=== PATIENT | female | born 1960 | race Caucasian/White ===

== ENCOUNTER 2020-06-14 03:29 | Outpatient (CLI) | payer SELFPAY ==
[2020-06-16 16:48] LABS: COVID-19 RT-PCR Result NEGATIVE (Negative)
== END 2020-06-14 03:49 ==
PROVIDERS: PCP Nurse Practitioner Family; Visit Provider Student in an Organized Health Care Education/Training Program
DX: Z11.59 Encounter for screening for other viral diseases (principal); Z01.818 Encounter for other preprocedural examination
CPT/HCPCS: U0003

== ENCOUNTER 2020-06-14 04:46 | Outpatient (CLI) | payer SELFPAY ==
[2020-06-14 10:32] LABS: HGB 13.1 g/dL (11.2-15.7); MCH 30.9 pg (27.0-33.0); MCHC 34.5 % (32.0-36.0); MCV 89.6 fL (80-95); MPV 8.8 fL (8.0-11.0); Platelet Count 334 10^3/uL (130-400); RBC 4.24 10^6/uL (3.93-5.22); RDW 12.3 % (11.7-14.6); RDW-SD 39.8 fL; WBC 8.28 10^3/uL (4.4-10.8)
[2020-06-14 11:47] LABS: Anion Gap 6.6 mmol/L (3-11); BUN 22 mg/dL (7-18); CO2 31.4 mmol/L (21.0-32.0); Calcium 9.4 mg/dL (8.5-10.1); Chloride 105 mmol/L (98-107); Glucose 102 mg/dL (74-106); Potassium 3.9 mmol/L (3.5-5.1); Sodium 143 mmol/L (136-145)
== END 2020-06-14 05:06 ==
PROVIDERS: PCP Nurse Practitioner Family; Visit Provider Student in an Organized Health Care Education/Training Program
DX: M25.562 Pain in left knee (principal); M17.12 Unilateral primary osteoarthritis, left knee; Z01.818 Encounter for other preprocedural examination; Z01.812 Encounter for preprocedural laboratory examination
CPT/HCPCS: 36415; 80048; 85027

== ENCOUNTER 2020-06-14 09:14 | Outpatient (CLI) | payer SELFPAY ==
--- NOTE | 2020-06-14 09:00 | DI.RAD_ITS ---
EXAM: XR STANDING ALIGNMENT CLINICAL HISTORY: PRE OP L TKA. TECHNIQUE: 2D digital imaging was performed. Standing AP views were performed including the pelvis through the ankles. COMPARISON: CR,DX XR KNEE 3V BILAT-M2 from 08/16/2019 FINDINGS: BONES: No acute fracture is present. No bony destructive lesion is seen. No significant leg length di screpancy at the level of the femoral heads. JOINTS: No dislocation present. The hip joint spaces are well maintained. There is mild acetabular s purring bilaterally. Prior right ACL repair. Severe narrowing of both medial femoral tibial joints causing bilateral varus angulation. Ankle joint spaces well maintained. SOFT TISSUE: Normal. IMPRESSION: Severe degenerative Changes of both medial femoral tibial joints. DATA REPOSITORY: RADIATION DOSE DELIVERED:
--- NOTE | 2020-06-14 09:00 | DI.RAD_ITS ---
EXAM: XR KNEE LT 1V CLINICAL HISTORY: PRE OP L TKA. TECHNIQUE: 2D digital imaging was performed. COMPARISON: CR,DX XR KNEE 3V BILAT-M2 from 08/16/2019 CR,DX XR KNEE 3V BILAT-M2 from 08/16/2019 CR XR STANDING ALIGNMENT from 06/14/2020 FINDINGS: BONES: No acute fracture is present. No bony destructive lesion is seen. JOINTS: The knee is normally aligned. A small joint effusion is seen. There is prominent spurring at the patellofemoral joint. Severe narrowing of the medial femoral tibial joint. SOFT TISSUE: Normal. IMPRESSION: Moderate to severe degenerative changes. DATA REPOSITORY: RADIATION DOSE DELIVERED:
== END 2020-06-14 09:34 ==
PROVIDERS: PCP Nurse Practitioner Family; Referring Provider Nurse Practitioner Family; Visit Provider Physician Assistant
DX: M17.12 Unilateral primary osteoarthritis, left knee (principal)
CPT/HCPCS: 73560; 77073

== ENCOUNTER 2020-06-19 07:32 | Observation (INO) | payer SELFPAY ==
[2020-06-19] VITALS (12 sets, daily range): BP systolic 88–156; BP diastolic 48–79; PULSE 58–82; RESP 10–20; TEMP 35.9–36.6; O2SAT 95–99
[2020-06-19] MEDS: Bupivacaine 0.25% Pres-Free 30 ML VIAL ×2 (08:04→12:13)
[2020-06-19] MEDS: Acetaminophen 500 MG TAB 1000 MG PO ×3 (08:33→19:39)
[2020-06-19] MEDS: Gabapentin 300 MG CAP PO ×2 (08:34→21:12)
[2020-06-19] MEDS: Lactated Ringers 1,000 ML 80 ML IV ×2 (08:40→15:29)
[2020-06-19] MEDS: Celecoxib 200 MG CAP 400 MG PO (09:33)
[2020-06-19] MEDS: CLINDAMYCIN 900 MG/50 ML BAG 50 MG IVPB (11:41)
[2020-06-19] MEDS: Normal Saline 20 ML VIAL (12:13)
[2020-06-19] MEDS: Ketorolac 30 MG/ML VIAL (12:13)
--- NOTE | 2020-06-19 14:44 | W.PM.OP ---
Date of service: 06/19/20 Time of Service: 12:44 Operative Note Operative Note DATE OF PROCEDURE: 06/19/20 PRE-OP DIAGNOSIS: Left Knee Osteoarthritis POST-OP DIAGNOSIS: same PROCEDURE: Left Total Knee Replacement SURGEON: Solis Reyna PRESS TENDER: Concha Cruz ANESTHESIA: regional and spinal ESTIMATED BLOOD LOSS: 250 PATHOLOGY: none sent TOURNIQUET TIME: 0 COMPLICATIONS: None Patient was transported to: PACU Patient's condition: stable Implants: 1. Depuy Attune Cementless Cruciate Retaining Femoral Component, Size 6 Narrow 2. Depuy Attune Cementless Rotating Platform Tibial Component, Size 4 3. Depuy Attune 6x6mm CR/RP Poly 4. Depuy Attune Patellar Component, Size 32mm Indications: I have seen Jessica in clinic for symptoms of knee arthritis, confirmed with radiographic findings. Jessica has exhausted nonoperative methods and was having significant limitations in daily function and desired better function and less pain. I discussed the technical details of a knee replacement. I explained the risks of the procedure to include, but not limited to, bleeding, infection, pain, stiffness, fracture, damage to nerves and vessels, damage to muscles and tendons, loosening, need for repeat procedure, blood clot and cardiopulmonary demise. Despite these risks, she elected to proceed. Findings: There was significant signs of arthritis throughout the knee, most notably of the medial tibia and femur. Procedure Description: Jessica was greeted in the preoperative holding area where the correct side was identified and marked. The consent was reviewed with the patient and signed. The history and physical was updated. All questions were answered. Preoperative medications were administered: Acetaminophen 1000mg, Celebrex 400mg, and Gabapentin 300mg. An adductor canal block was then administered by the anesthesia team in the PACU. Jessica was taken back to the operating room. A spinal anesthestic was then administered. The patient was placed into the supine position on the operating room table. A nonsterile tourniquet was placed high onto the leg but only used for cementing. Posts were placed for positioning during the procedure. All bony prominences were well padded. Prophylactic antibiotics in the form of Cefazolin were administered. 1g of Tranxemic Acid was given intravenously within 30 minutes of incision. The left leg was then prepped with Chloraprep and draped in a standard fashion with impervious stockinette. A second prep with Chloraprep was performed prior to application of Iodine impregnated skin protection. A timeout to confirm correct identity, side and site, procedure, allergies, anesthesia, and medical concerns was performed. With the knee in some flexion, a midline incision was made overlying the knee. Full thickness skin flaps were raised once the extensor mechanism was encountered. These were raised medially and laterally. Any bleeding was controlled with electrocautery. Once the extensor mechanism was fully exposed, a medial parapatellar arthrotomy was performed in a flexed position. All bleeding from the arthrotomy and the geniculate arteries was coagulated. A medial subperiosteal peel was performed with electrocautery to the midcoronal plane. Due to the significant varus deformity the entire medial tibial plateau was exposed. The fat pad was removed while keeping the patellar tendon protected. The anterior distal femur synovium was removed for later visualization. The ACL and PCL were resected and the anterior horn of the lateral meniscus was transected. The knee was then flexed with the patella everted. Large osteophytes from the tibia and femur were removed. Using a step drill, and based on preoperative templating, the femoral canal was entered. This was done with a step drill without any difficulty. The intramedullary distal femoral cut guide was inserted, set to a 5 degree valgus cut and 9mm cut thickness. The distal femoral cut guide was then held in position and pinned. With the soft tissues protected, the distal cut was performed. This was passed over a few times to ensure a planar cut. I then turned attention to the tibia. The extramedullary guide was placed onto the leg. The distal aspect was slid medial to adjust for position of center of ankle and stay in line with shaft of the tibia. Approximately 3-5 degrees of posterior slope was kept in the proximal cutting guide. The center of the guide was aligned with the PCL. The stylus was used to assess cut thickness. The medial side, most involved side, was set for a 2mm cut. This was then held in position and pinned into place with 2 additional pins and a cross pin for stability. The medial and lateral collateral ligaments were protected and the cut was performed. With this completed, it was assessed and noted to be of appropriate dimensions. The guide was removed. A spacer block was inserted and the knee was brought into extension. The 6mm spacer block provided full extension, without hyperextension and with stability of both the medial and lateral collateral ligaments was assessed. The pins from the femur and the tibia were then removed. The distal femur was then sized. The anterior stylus was placed onto the lateral ridge of the anterior femur. This indicated a size 6 narrow femur. The external rotation of the guide was adjusted to 3 degrees to match the epicondylar axis, perpendicular to [place]?s line. The 4-in-1 cutting guide was the placed. The posterior medial femur cut was evaluated and appeared of good thickness. The spacer block was inserted underneath the cutting guide and stability was confirmed in 90 degrees of flexion. An vero wing was used to confirm appropriate position of the anterior cut to avoid notching. This cutting guide was ensured to be flush on the cut surface and then pinned into place with headed pins. While protecting the soft tissues, quad tendon, and collateral ligaments, the anterior and posterior cuts were performed with a saw. The central two pins were removed and the posterior and anterior chamfers were cut next. The notch-cutting guide was placed. This was pinned to lateralize the femoral component as much as possible while keeping it flush on the cut surface. This was then pinned into position. A reciprocating saw was used to make the notch cut. A rasp smoothed the cut surfaces. The medial and lateral menisci were removed. A trial femoral component was then inserted, impacted down to the cut surfaces, and the lug holes were drilled. A provisional trial tibial component was placed and the knee was brought through range of motion. There was noted to be excellent extension and flexion. There was no significant instability. The patella was tracking without thumbs. A size 6mm polyethylene component provided the best range of motion and stability with less than 2mm gapping with medial and lateral stress and full extension without significant hyperextension. The tibial cut surface was fully exposed. The tibia was then sized as a 4. The tibia had been previously marked during trialing to correspond to the center of the tibial component to help with rotation. The trial was aligned to this concha, approximately rotated to the medial 1/3rd of the tibial tubercle. The trial was pinned into place. The tibia was prepared with a reamer and a keel punch and lug holes. The knee was then brought into extension and the patella was measured as 23mm. Using the patellar clamp and cut guide, this was resected to a flat surface with at least 13mm of thickness remaining. The size 32 patella fit the best. This was oriented and then clamped into position. The lugs were drilled. The trial components were removed. The final components were opened on the back table. The periosteal and capsular tissues, especially posteriorly, around the knee were then systematically injected with a periarticular cocktail consisting of 50cc 0.25% Marcaine, 30mg Ketorolac, 20cc of Exparal and 50cc of injectable saline. The knee was thoroughly irrigated with a pulse lavage and dried. Irrisept was also used to irrigate the tissues. On the back table, with the implants opened, the cement was mixed. One batche of high viscosity cement were prepared with vacuum assistance. After the cement was ready a small amount was placed on the cut surface of the patella and the patellar button was clamped into position and held. During this process attention was turned to the gutters of the knee and for all interfaces for any excess cement. While the cement was hardening, the cementless knee components were placed. Starting with the tibial component, the tibia was subluxed anteriorly and the lug holes of the component were lined up. The tibia was then impacted with an impactor and mallet until the tibial component was in contact with the tibia. The final polyethylene component was inserted. Then, the femoral component was inserted. The lug holes were aligned and the component was impacted into position. The knee was irrigated with Irrisept chlorhexadine solution. This was allowed to sit in the knee for 3 minutes. After the cement had finally cured, approximately 15min, the clamp was removed from the patella and the knee was taken through range of motion. The patella was tracking with a no-thumbs technique. The capsule was then reapproximated with a No. 1 Vicryl at multiple locations. The capsule was finally closed with a No. 2 Stratafix, barbed suture. The tourniquet was then released and the arthrotomy appeared watertight without significant bleeding. The second dosing of 1g TXA was started. Deep tissues were then reapproximated with 0 Vicryl and 2-0 Vicryl. The skin was closed with a running 3-0 Monocryl in a subcuticular fashion. This was reinforced with skin glue. A Mepilex silver dressing was applied along with a [id number] PIA wrap. A CryoCuff was applied. NAME was transferred to the hospital bed without difficulty an suffering no apparent complication. Jessica has a good prognosis. Physical therapy will start today and without restrictions, weight-bearing as tolerated. Aspirin 81mg BID will be used for DVT prophylaxis.
[2020-06-19] MEDS: Gabapentin 100 MG CAP PO ×2 (14:49→19:39)
--- NOTE | 2020-06-19 15:13 | PT.INIE ---
Date of service: 06/19/20 Time of Service: 15:13 PT Notes Visit Reasons: L KNEE OA Physical Therapy Inpatient Initial Evaluation Date: 06/19/2020 Referring Doctor: KYA Rizvi PT Orders: PT CONSULT: Eval/treat Precautions: Fall. Standard. WBAT on left LE. Patient Profile/Admitting Diagnosis: Jessica is a 60-year-old female with degenerative joint disease of the left knee and is status post total knee arthroplasty on postoperative day 0. PMHX: Medical History Osteoarthritis of left knee Surgical History (Updated 06/14/20 @ 12:40 by KYA Rizvi) Status post arthroscopy of right knee Status post left rotator cuff repair Status post reconstruction of anterior cruciate ligament RIGHT Social History/Home Situation: Lives alone in a private home with three steps to enter and a rail on one side. Daughter, who is a physical therapist from [facility] has quarantined and will be with the patient during her first week of recovery. 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 Friend will help her out during the second week post-op. Equipment Owned/DME: [employer] Subjective: Reports some achiness in the back of her knee that felt better with ambulation activity. Indicates that she has had some tingling in her L leg and toes from her sciatica but today there is more tingling in said areas. She does understand that it may also be due to the anesthesia. Denies headache, dizziness, and chest pain throughout session. Objective: General Observation: Raymundo wraps on left LE. Cryo/Cuff on right knee. IV acces in R UE. Mental Status: Alert and oriented x4 Pain: 1/10 in the right knee ROM: Right Upper Extremity: Shoulder Flexion WFL. Shoulder abduction WFL. Elbow flexion WFL. Wrist flexion WFL. Opening and closing of hand WFL. Left Upper Extremity: Shoulder Flexion WFL. Shoulder abduction WFL. Elbow flexion WFL. Wrist flexion WFL. Opening and closing of hand WFL. Right Lower Extremity: Hip flexion WFL. Hip abduction WFL. Knee flexion WFL. Ankle dorsiflexion WFL. Ankle plantarflexion WFL. Left Lower Extremity: Hip flexion WFL. Hip abduction WFL. Knee flexion 10degrees to 90 degrees. Knee extension -10 degrees. Ankle dorsiflexion WFL. Ankle plantarflexion WFL. Strength: Right Upper Extremity: Shoulder flexors 5/5. Shoulder abductors 5/5. Elbow flexors 5/5. Elbow extensors 5/5. Gas Regulator Repairer Helper strong. Left Upper Extremity: Shoulder flexors 5/5. Shoulder abductors 5/5. Elbow flexors 5/5. Elbow extensors 5/5. Gas Regulator Repairer Helper strong. Right Lower Extremity: Hip flexors 5/5. Hip abductors 5/5. Knee flexors 3-/5. Knee extensors 3-/5. Ankle dorsiflexors 5/5. Ankle plantarflexors 5/5. Left Lower Extremity:Hip flexors 5/5. Hip abductors 5/5. Knee flexors 5/5. Knee extensors 5/5. Ankle dorsiflexors 5/5. Ankle plantarflexors 5/5. Sensation: Intact as to pain and pressure on bilateral lower extremities. Reports some increased tingling in B legs and toes. Bed Mobility/Transfers: Rolling supervison Supine to sit supervison with HOB at 30 degrees Sit to stand SBA Stand to sit SBA Bed to chair SBA Chair to bed SBA Gait: Guided patient through level surface ambulation of 100 feet using front wheeled walker with WBAT on the left LE requiring only standby assist and minimal verbal cueing for correct gait pattern and walker mechanics. Step through gait pattern. Reported less stiffness on the left knee with activity. THERA EX: Instructed patient in correct performance of muscle static exercises for bilateral gluteals and quadriceps x10 along with ankle DF/PF x10 every hour with good response. Balance: Static Sitting: Normal Dynamic Sitting: Normal Static Standing: Fair Dynamic Standing: Fair Special Tests: Mobility Limitations Standardized Measure [facility] AM-PAC 6 clicks Basic Mobility Inpatient Short Form: Raw Score: 23 CMS Score: 11% deficit Informed Consent/Education: Patient instructed in purpose of PT consult and plan of care. Assessment: Jessica demonstrates functional mobility decline requiring the use of front wheeled walker for all mobility ADL performance. She will have adequate support at home. She will benefit from outpatient PT services to facilitate achievement of highest functional level and of full return to vocational activities. Patient presents with clinical signs and symptoms consistent with current/admitting diagnoses that have resulted to mobility limitations, gait instability, generalized weakness, and impairment of motor control as demonstrated by the following impairment level findings: 1. Decreased strength to left knee major muscle groups 2. Impaired standing balance 3. Impaired activity tolerance 4. Limitation of joint range of motion in left knee Impairments are contributing to the following functional limitations: 1. Inability to safely ambulate without assistive device 2. Increase completion time for mobility ADL performance 3. Increased fall risk 4. Inability to negotiate steps alone safely Patient is assessed as a 39787 moderate complexity based on the following: History: Asked to 1-year-old female with impairment level findings, functional limitations, and past medical history as indicated above Examination: Demonstrable impairment in strength, balance, and mobility level with underlying impairments and functional limitations as documented above Presentation:Evolving Decision Makin moderate complexity Goals: Goals X 2 sessions 1. Supine-Sit independent 2. Sit-Supine independent 3. Sit-Stand independent 4. Stand-Sit independent 5. Bed-Chair independent 6. Chair-Bed independent 7. Independent gait on level surface with use of front wheeled walker for at least 300 feet without report of pain nor dyspnea 8. Independent stair negotiation while holding onto bilateral rails for at least 5 steps without report of pain nor dyspnea 9. Independent with home exercise program 10. Good static and dynamic standing balance/tolerance Plan of Care/Treatment Plan: 1-2x/day, 7 days/week x 1 week. Plan of care has been reviewed with the APPOINTMENT SETTER providing the service under Physical Therapy direction. Initiate Physical Therapy intervention for strengthening, bed mobility, transfers, gait, stairs, balance training, use of assistive device. DISCHARGE RECOMMENDATIONS: Home when medically cleared by orthopedic surgeon. Outpatient PT services in 2 weeks to facilitate achievement of highest functional mobility level and facilitate return to vocational activities. TREATMENT CODE/TIME: 15079 x 30 minutes, 86091 x 12 minutes beginning at 15:13 PM. Thank you for the opportunity to participate in the care of this patient. Yasmine Webb PT, DPT, CLT [facility] [place], [place]
[2020-06-19] MEDS: CLINDAMYCIN 600 MG/50 ML BAG 100 MG IVPB ×2 (16:57→23:35)
[2020-06-19] MEDS: Celecoxib 200 MG CAP PO (19:39)
[2020-06-19] MEDS: Aspirin E.C. 81 MG TABEC PO (19:39)
[2020-06-20] MEDS: Lactated Ringers 1,000 ML 80 ML IV (03:44)
[2020-06-20 04:03] VITALS: BP 110/62; RESP 18; TEMP 36.4; O2SAT 94
--- NOTE | 2020-06-20 06:39 | DSE_ITS ---
Date of service: 06/20/20 Time of Service: 08:33 DS: Diagnosis Discharge Diagnosis (1) Osteoarthritis of left knee: Status: Acute Discharge Plan Disposition Patient Disposition: HOME Condition: Good Discharge Details Reason For Visit: L KNEE OA Admit Date/Time: 06/19/20 07:32 Admit Provider: Solis Reyna Attending Provider: Solis Reyna Primary Care Provider: Ruperto Helton Hospital Course Hospital Course: Patient was admitted to the medical/surgical floor following the procedure. The surgery was tolerated well without any notable medical, surgical, or anesthetic complications. Mobilization began postoperatively. She was voiding spontaneously. Vitals were stable. Physical therapy worked with the patient and was cleared for discharge home. No acute medical issues. Pain was controlled on oral regimen. Home Meds and New Rx's Prescriptions: New celecoxib [Celebrex] 200 mg capsule 200 mg PO BID Qty: 60 RF: 0 aspirin 81 mg tablet,delayed release (DR/EC) 81 mg PO BID Qty: 60 RF: 0 pantoprazole [Protonix] 40 mg tablet,delayed release (DR/EC) 40 mg PO DAILY Qty: 30 RF: 0 oxycodone 5 mg tablet 5 mg PO Q4H PRNQty: 18 RF: 0 docusate sodium [Colace] 100 mg capsule 100 mg PO BID PRNQty: 10 RF: 0 gabapentin 300 mg capsule 300 mg PO QHS Qty: 14 RF: 0 acetaminophen 500 mg tablet 1,000 mg PO Q8H PRN (Reason: pain) Qty: 90 RF: 3 Continued gabapentin 100 mg capsule 100 mg PO TID RF: 0 multivitamin Tablet RF: 0 coenzyme Q10 [CoQ-10] 100 mg Capsule PO RF: 0 vit A, C, E-ndL24-vluimo vit 6 5,000-60-30-7.5 jggo-vj-qw-mg Tablet PO RF: 0 No Action ibuprofen 400 mg tablet 800 mg PO Q6H RF: 0 Discharge Instructions Additional Instructions: Total Knee Discharge Instructions Activity: The most important activity is to walk. You should try to take short walks a few times a day. It is important that when resting you work on keeping the knee straight. Avoid putting a pillow behind the knee as this will encourage flexion. Work on range of motion exercises as provided by Physical Therapy. - Start outpatient physical therapy within 2 weeks. - You should wear the BERNIE hose on both legs for 2 weeks. Dressing: Keep the surgical dressing in place for at least one week. After the first week it may be removed and replace with light gauze and tape or nothing. It may get wet after 3 days but avoid soaking the dressing. If it gets wet, just lightly pat dry. Medications: - You should take Tylenol and anti-inflammatory Celebrex as your primary pain control medications. If the Celebrex is too expensive or not covered, please call the office for another alternative (Advil/Ibuprofen or Naproxen/Aleve), available [id number] - You have been prescribed a stronger pain medication Oxycodone for breakthrough pain, take as needed as prescribed. - You have also been prescribed a stomach acid reduction agent Pantoprozole to help reduce stomach acid and reflux. - You have been prescribed an additional dose of Gabapentin, 300mg. This is to be taken at bedtime to help with restlessness and nerve pain associated with surgery. - You will be taking Aspirin 81mg twice a day for DVT prevention unless instructed otherwise. - If you have constipation you should take Colace or Miralax (both over-the- counter). It takes most people 3-4 days to have a bowel movement. Follow-up: 2 weeks If you have any acute concerns or questions, please do not hesitate to contact the office at [phone]. You may contact Dr. Reyna with any questions after hours through the hospital at [phone] or on his cell phone at [phone]. Referrals: Solis Reyna MD [ [facility] STAFF PHYSICIAN] - Activity:: Activity as Tolerated Equipment/Supplies:: Walker Diet:: As Tolerated Discharge Orders Discharge Orders: Discharge Order (Routine); Ordered 06/20/20 Ordered By: Solis Reyna DS: Summary Status at Discharge Functional status at discharge: uses cane/walker Overall status at discharge: patient is progressing back to baseline Mental Status: mental status grossly normal Speech and Movement: speech and movement normal Mood: congruent mood Affect: normal affect Exam Psych Mental Status: mental status grossly normal Speech and Movement: speech and movement normal Mood: congruent mood Affect: normal affect DS: Data Vitals/I&O Vitals and I&O: Vital Signs Temperature 36.4 C L 06/20/20 04:03 Temperature Source Tympanic 06/20/20 04:03 Pulse 70 06/19/20 23:41 Pulse Rhythm Regular 06/19/20 23:39 Respiratory Rate 18 06/20/20 04:03 Respiratory Effort Non-Labored 06/19/20 23:39 Respiratory Depth Normal 06/19/20 23:39 Respiratory Pattern Normal 06/19/20 23:39 Blood Pressure 110/62 06/20/20 04:03 Pulse Oximetry 94 06/20/20 04:03 Respiratory End-tidal CO2 35 06/19/20 14:15 Oxygen Delivery Method Room Air 06/20/20 04:03 Oxygen Flow Rate 0 06/20/20 04:03 Pain Level 2 06/19/20 23:41 Intake & Output 06/19/20 06/19/20 06/20/20 11:59 23:59 11:59 Intake Total 110 / 1730 1620 / 1730 1030 / 1030 Output Total 2150 / 2150 800 / 800 Balance 110 / -420 -530 / -420 230 / 230 Weight 96.1 kg Intake: IV 110 / 1170 1060 / 1170 1030 / 1030 Oral 560 / 560 Output: Urine 1900 / 1900 800 / 800 Estimated Blood Loss 250 / 250 Other: Urine Color Yellow Yellow Urine Appearance Clear Clear Urine Odor None Emesis Description None Voiding Methods Toilet Toilet [facility] Medical History Osteoarthritis of left knee Surgical History History of removal of ovarian cyst Hx of cholecystectomy Status post arthroscopy of right knee Status post left rotator cuff repair Status post reconstruction of anterior cruciate ligament RIGHT Social History Smoking/Tobacco Use Status: Never Smoking risk assessment performed?: Yes Drug use: Never
[2020-06-20 07:30] VITALS: BP 121/68; PULSE 61; RESP 17; TEMP 36.6; O2SAT 97
[2020-06-20] MEDS: Celecoxib 200 MG CAP PO (07:36)
[2020-06-20] MEDS: Multivitamin w/Minerals TAB 1 TAB PO (07:36)
[2020-06-20] MEDS: oxyCODONE 5 MG TAB PO (07:36)
[2020-06-20] MEDS: Pantoprazole 40 MG TABCR PO (07:36)
[2020-06-20] MEDS: CLINDAMYCIN 600 MG/50 ML BAG 100 MG IVPB (07:37)
[2020-06-20] MEDS: Aspirin E.C. 81 MG TABEC PO (07:37)
[2020-06-20] MEDS: Gabapentin 100 MG CAP PO (07:37)
[2020-06-20] MEDS: Acetaminophen 500 MG TAB 1000 MG PO (07:37)
--- NOTE | 2020-06-20 10:45 | PT.INTREAT ---
Date of service: 06/20/20 Time of Service: 09:10 PT Notes Visit Reasons: L KNEE OA Inpatient Physical Therapy Treatment Note [facility] Date: 06/20/2020 PRECAUTIONS: Fall, WBAT L SUBJECTIVE: Jessica states that she is feeling much better after receiving pain medication. She is agreeable to participating in PT. she reports that she is discharging to home later today. OBJECTIVE: PAIN: No complaints of pain BED MOBILITY/TRANSFERS Supine-sit: I with HOB flat Sit-stand: I Stand-sit: I Bed?chair: S Chair?bed: S GAIT Assistive Device: FWW Weight bearing: WBAT L Assist: S Distance: 300' Deviation: Step through gait pattern, decreased stiffness and pain THEREX: Patient was instructed in a LE strengthening and stabilization program, performed in a supine position, as per flow sheet. STAIRS: Up/down 3x4 and 2x6 using U rail/U axillary crutch and a step to pattern with supervision ASSESSMENT: Patient tolerated session with reports of decreased stiffness and pain in L knee with gait training and ther ex. She was able to tolerate a progression in gait distance with FWW support and supervision, as well as the addition of stair training. PLAN: Patient to discharge home later today. TREATMENT CODE/TIME: 30 minutes; 52401, [id number]
--- NOTE | 2020-06-24 09:09 | PT.INDS ---
Date of service: 06/24/20 Time of Service: 09:10 PT Notes Visit Reasons: L KNEE OA Physical Therapy Inpatient Discharge Summary Date: 06/24/2020 Date of service: 06/19/2020 and 06/20/2020 This is a clinical summary of care provided on the duration of dates listed above. No charge was made in the completion of this documentation. Referring Doctor: KYA Rizvi PT Orders: PT CONSULT: Eval/treat Precautions: Fall. Standard. WBAT on left LE. Patient Profile/Admitting Diagnosis: Jessica is a 60-year-old female with degenerative joint disease of the left knee and is status post total knee arthroplasty on postoperative day 0. PMHX: Medical History Osteoarthritis of left knee Surgical History (Updated 06/14/20 @ 12:40 by KYA Rizvi) Status post arthroscopy of right knee Status post left rotator cuff repair Status post reconstruction of anterior cruciate ligament RIGHT Social History/Home Situation: Lives alone in a private home with three steps to enter and a rail on one side. Daughter, who is a physical therapist from [facility] [employer] has quarantined and will be with the patient during her first week of recovery. 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 Friend will help her out during the second week post-op. Equipment Owned/DME: [employer], [employer] Subjective: NT. See most recent ART PSYCHOTHERAPIST notes. Objective: General Observation: NT. See most recent ART PSYCHOTHERAPIST notes. Mental Status: NT. See most recent ART PSYCHOTHERAPIST notes. Pain: NT. See most recent ART PSYCHOTHERAPIST notes. ROM: Right Upper Extremity: Shoulder Flexion WFL. Shoulder abduction WFL. Elbow flexion WFL. Wrist flexion WFL. Opening and closing of hand WFL. Left Upper Extremity: Shoulder Flexion WFL. Shoulder abduction WFL. Elbow flexion WFL. Wrist flexion WFL. Opening and closing of hand WFL. Right Lower Extremity: Hip flexion WFL. Hip abduction WFL. Knee flexion WFL. Ankle dorsiflexion WFL. Ankle plantarflexion WFL. Left Lower Extremity: Hip flexion WFL. Hip abduction WFL. Knee flexion 10degrees to 90 degrees. Knee extension -10 degrees. Ankle dorsiflexion WFL. Ankle plantarflexion WFL. Strength: Right Upper Extremity: Shoulder flexors 5/5. Shoulder abductors 5/5. Elbow flexors 5/5. Elbow extensors 5/5. Casework Specialist strong. Left Upper Extremity: Shoulder flexors 5/5. Shoulder abductors 5/5. Elbow flexors 5/5. Elbow extensors 5/5. Casework Specialist strong. Right Lower Extremity: Hip flexors 5/5. Hip abductors 5/5. Knee flexors 3-/5. Knee extensors 3-/5. Ankle dorsiflexors 5/5. Ankle plantarflexors 5/5. Left Lower Extremity:Hip flexors 5/5. Hip abductors 5/5. Knee flexors 5/5. Knee extensors 5/5. Ankle dorsiflexors 5/5. Ankle plantarflexors 5/5. Sensation: Intact as to pain and pressure on bilateral lower extremities. Reports some increased tingling in B legs and toes. Bed Mobility/Transfers: Rolling independent Supine to sit independent Sit to stand independent Stand to sit independent Bed to chair supervision Chair to bed supervision Gait: Guided patient through level surface ambulation of up to 300 feet using front wheeled walker with WBAT on the left LE requiring only supervision assist and minimal verbal cueing for correct gait pattern and walker mechanics. Step through gait pattern. Reported less stiffness on the left knee with activity. Balance: Static Sitting: Normal Dynamic Sitting: Normal Static Standing: Fair Dynamic Standing: Fair Assessment: Jessica continues to demonstrate functional mobility decline requiring the use of front wheeled walker for all mobility ADL performance. She will have adequate support at home. She will benefit from outpatient PT services to facilitate achievement of highest functional level and of full return to vocational activities. Patient continues to present with clinical signs and symptoms consistent with current/admitting diagnoses that have resulted to mobility limitations, gait instability, generalized weakness, and impairment of motor control as demonstrated by the following impairment level findings: 1. Decreased strength to left knee major muscle groups 2. Impaired standing balance 3. Impaired activity tolerance 4. Limitation of joint range of motion in left knee Impairments are continuing to contribute to the following functional limitations: 1. Inability to safely ambulate without assistive device 2. Increase completion time for mobility ADL performance 3. Increased fall risk 4. Inability to negotiate steps alone safely Goals: Goals X 2 sessions 1. Supine-Sit independent MET 2. Sit-Supine independent MET 3. Sit-Stand independent MET 4. Stand-Sit independent MET 5. Bed-Chair independent NOT MET 6. Chair-Bed independent NOT MET 7. Independent gait on level surface with use of front wheeled walker for at least 300 feet without report of pain nor dyspnea NOT MET 8. Independent stair negotiation while holding onto bilateral rails for at least 5 steps without report of pain nor dyspnea NOT MET 9. Independent with home exercise program NOT MET 10. Good static and dynamic standing balance/tolerance NOT MET DISCHARGE RECOMMENDATIONS: Home when medically cleared by orthopedic surgeon. Outpatient PT services in 2 weeks to facilitate achievement of highest functional mobility level and facilitate return to vocational activities. TREATMENT CODE/TIME: NC. Thank you for the opportunity to participate in the care of this patient. Yasmine Webb PT, DPT, CLT [facility] [place], [place]
== END 2020-06-20 11:02 | disposition home or self-care (01) ==
LOC: PDS 13:03 → MS 14:37
PROVIDERS: Admitting Provider Student in an Organized Health Care Education/Training Program; PCP Nurse Practitioner Family; Visit Provider Student in an Organized Health Care Education/Training Program
PROC: 0SRD0J9 Replacement of Left Knee Joint with Synthetic Substitute, Cemented, Open Approach (ICD-10-PCS; CPT 27447; principal; 2020-06-19 11:45)
DX: M17.12 Unilateral primary osteoarthritis, left knee (principal); Z96.652 Presence of left artificial knee joint; G89.18 Other acute postprocedural pain; Z88.2 Allergy status to sulfonamides
CPT/HCPCS: 27447; C1776; 76942; 97110; 97162; 97530; NC; G0378; J1885; J2250; J2405

== ENCOUNTER 2020-07-04 10:21 | Outpatient (CLI) | payer SELFPAY ==
--- NOTE | 2020-07-04 08:00 | DI.RAD_ITS ---
EXAM: XR KNEE LT 1V CLINICAL HISTORY: post operative. TECHNIQUE: 2D digital imaging was performed. COMPARISON: CR XR KNEE LT 1V from 06/14/2020 FINDINGS: This lateral view there appears to be normal position alignment of the components of the prosthesis w ith no fracture or loosening evident. No radiographic evidence of osteomyelitis. IMPRESSION: DATA REPOSITORY: RADIATION DOSE DELIVERED:
--- NOTE | 2020-07-04 08:00 | DI.RAD_ITS ---
EXAM: XR STANDING ALIGNMENT CLINICAL HISTORY: post op. TECHNIQUE: 2D digital imaging was performed. COMPARISON: CR XR STANDING ALIGNMENT from 06/14/2020 FINDINGS: There has been interval placement a left knee prosthesis. Satisfactory vision alignment. No fractur e or loosening evident. There is evidence of previous ACL surgery in the opposite-right knee and adv anced narrowing of the medial compartment of the right knee is noted. Hips appear unremarkable. No osteochondral defects in talar domes. IMPRESSION: DATA REPOSITORY: RADIATION DOSE DELIVERED:
== END 2020-07-04 10:41 ==
PROVIDERS: PCP Nurse Practitioner Family; Referring Provider Nurse Practitioner Family; Visit Provider Physician Assistant Surgical
DX: Z96.652 Presence of left artificial knee joint (principal)
CPT/HCPCS: 73560; 77073

== ENCOUNTER 2021-07-28 15:47 | Outpatient (CLI) | payer SELFPAY ==
--- NOTE | 2021-07-28 15:30 | DI.RAD_ITS ---
Exam(s) XR KNEE LT 2V AP,LAT EXAM: XR KNEE LT 2V AP,LAT CLINICAL HISTORY: f/u L TKA. TECHNIQUE: 2D digital imaging was performed. COMPARISON: CR XR KNEE LT 1V from 07/04/2020 FINDINGS: Stable position alignment the components of the prosthesis. No fracture or loosening evident. IMPRESSION: DATA REPOSITORY: RADIATION DOSE DELIVERED:
--- NOTE | 2021-07-28 15:30 | DI.RAD_ITS ---
Exam(s) XR KNEE RT 3V AP,LAT,ELISHA EXAM: XR KNEE RT 3V AP,LAT,ELISHA CLINICAL HISTORY: eval continued R knee pain. TECHNIQUE: 2D digital imaging was performed. COMPARISON: CR XR KNEE LT 1V from 06/14/2020 CR XR KNEE LT 1V from 07/04/2020 CR XR KNEE LT 2V AP,LAT from 07/28/2021 FINDINGS: There has been prior ACL repair. No fracture. No prominent joint effusion but there is advanced tri compartmental osteoarthritic degenerative change evident. [id number] in the medial and patellofemo ral compartments. IMPRESSION: DATA REPOSITORY: RADIATION DOSE DELIVERED:
== END 2021-07-28 15:48 | disposition home or self-care (01) ==
LOC: DIORS 15:47
PROVIDERS: PCP Nurse Practitioner Family; Referring Provider Nurse Practitioner Family; Visit Provider Student in an Organized Health Care Education/Training Program
DX: M25.561 Pain in right knee (principal); M17.11 Unilateral primary osteoarthritis, right knee; Z96.652 Presence of left artificial knee joint; Z98.890 Other specified postprocedural states
CPT/HCPCS: 73562; 73560

== ENCOUNTER 2022-07-13 09:30 | Outpatient (CLI) | payer SELFPAY ==
--- NOTE | 2022-07-13 09:15 | DI.RAD_ITS ---
Exam(s) XR KNEE LT 3V AP,LAT,ELISHA EXAM: XR KNEE LT 3V AP,LAT,ELISHA CLINICAL HISTORY: s/p L TKA. TECHNIQUE: 2D digital imaging was performed. Three views. COMPARISON: CR XR KNEE LT 1V from 07/04/2020 CR XR KNEE RT 3V AP,LAT,ELISHA from 07/28/2021 CR XR KNEE LT 2V AP,LAT from 07/28/2021 FINDINGS: BONES: Total knee prosthesis. No abnormal surrounding bony lucencies. No acute fracture is present. No bony destructive lesion is seen. JOINTS: Mild lateral patellar tilt and mild lateral patellar deviation.. No joint effusion is seen. SOFT TISSUE: Normal. IMPRESSION: Lateral patellar tilt and mild lateral patellar deviation. DATA REPOSITORY: RADIATION DOSE DELIVERED:
== END 2022-07-13 09:31 | disposition home or self-care (01) ==
LOC: DIORS 07-14 08:38
PROVIDERS: PCP Nurse Practitioner Family; Visit Provider Student in an Organized Health Care Education/Training Program
DX: Z96.652 Presence of left artificial knee joint (principal); M22.8X2 Other disorders of patella, left knee
CPT/HCPCS: 73562

== ENCOUNTER 2023-03-22 04:28 | Outpatient (CLI) | payer SELFPAY ==
[2023-03-22 10:56] LABS: HCT 42.4 % (36.0-46.0); HGB 14.6 g/dL (11.2-15.7); MCH 30.4 pg (27.0-33.0); MCHC 34.4 % (32.0-36.0); MCV 88 fL (80-95); MPV 8.4 fL (8.0-11.0); Platelet Count 296 10^3/uL (130-400); RDW 12.7 % (11.7-14.6); RDW-SD 41.1 fL; WBC 5.21 10^3/uL (4.4-10.8)
[2023-03-22 11:49] LABS: Anion Gap 7.8 mmol/L (3-11); BUN 18 mg/dL (7-18); CO2 30.2 mmol/L (21.0-32.0); CREATININE 0.7 mg/dL (0.55-1.02); Calcium 10.1 mg/dL (8.5-10.1); Chloride 103 mmol/L (98-107); Estimated GFR 97.12 (mL/min/1.73m2); Glucose 91 mg/dL (74-106); Potassium 4.1 mmol/L (3.5-5.1); Sodium 141 mmol/L (136-145)
== END 2023-03-22 04:29 | disposition home or self-care (01) ==
LOC: LBO 04:32
PROVIDERS: PCP Nurse Practitioner Family; Visit Provider Student in an Organized Health Care Education/Training Program
DX: M25.561 Pain in right knee (principal); M17.11 Unilateral primary osteoarthritis, right knee; Z01.818 Encounter for other preprocedural examination; Z01.812 Encounter for preprocedural laboratory examination
CPT/HCPCS: 36415; 80048; 85027

== ENCOUNTER 2023-03-22 09:26 | Outpatient (CLI) | payer SELFPAY ==
--- NOTE | 2023-03-22 08:15 | DI.RAD_ITS ---
Exam(s) XR KNEE RT 1V XR STANDING ALIGNMENT EXAM: XR STANDING ALIGNMENT and XR knee RT 1 V CLINICAL HISTORY: right knee DJD. TECHNIQUE: 2D digital imaging was performed. Eleven images were obtained. COMPARISON: CR XR STANDING ALIGNMENT from 07/04/2020 FINDINGS: BONES: The hips are well maintained. There is a stable left total knee replacement. There are marke d degenerative changes seen in the right knee characterized by joint space narrowing and osteophytes. The findings are most marked in the patellofemoral and medial femoral tibial joint. There is no neetu int effusion. Findings suggestive of a prior ACL repair are noted. No joint effusion is seen. The ankles are well maintained.There is no significant leg length discrepancy. SOFT TISSUE: Normal. IMPRESSION: 1. Marked degenerative changes of the right knee. 2. Left total knee replacement. DATA REPOSITORY: RADIATION DOSE DELIVERED:
== END 2023-03-22 09:27 | disposition home or self-care (01) ==
LOC: DIORS 09:26
PROVIDERS: PCP Nurse Practitioner Family; Visit Provider Physician Assistant
DX: M17.11 Unilateral primary osteoarthritis, right knee (principal); Z96.651 Presence of right artificial knee joint
CPT/HCPCS: 73560; 77073

== ENCOUNTER 2023-03-30 06:04 | Day surgery (SDC) | payer SELFPAY ==
[2023-03-30] VITALS (11 sets, daily range): BP systolic 103–154; BP diastolic 48–82; PULSE 58–71; RESP 16–20; TEMP 36.2–36.6; O2SAT 93–100; BMI 32.9
--- NOTE | 2023-03-30 06:22 | W.ANESPRE ---
General Info Date of Service Date Performed: 03/30/23 Height: 5 ft 4 in Weight: 87.09 kg Body Mass Index (BMI): 32.9 Surgical Procedure: Operation Date: 03/30/23 07:40 Proposed Procedure Side Surgeon p Knee Total Arthroplasty w/OrthAlign, Cementless CR, ? Screw Removal Right Solis Reyna MD Meds Allergies and Home Medications Allergies Allergy/AdvReac Type Severity Reaction Status Date / Time cephalexin [From Keflex] Allergy Intermediate WHOLE BODY Verified 03/30/23 06:23 RASH Sulfa (Sulfonamide Allergy Mild RASH Verified 03/30/23 06:23 Antibiotics) Home Medication Medication Instructions Recorded coenzyme Q10 100 mg capsule 100 mg PO DAILY 06/19/20 (CoQ-10) multivitamin 1 tab PO DAILY 06/19/20 vitamin A,C,E-co [id number] vit#6 1 tab PO DAILY 06/19/20 5,000 unit-60 mg-30 mg-7.5 mg tablet gabapentin 100 mg capsule 100 mg PO TID 07/13/22 Current Visit Medications: Current Medications Generic Name Dose Route Start Last Admin Trade Name Freq PRN Reason Stop Dose Admin Acetaminophen 1,000 mg 03/30/23 06:00 Acetaminophen 500 Mg Tab PO 03/30/23 16:00 PREOP DENYS Gabapentin 300 mg 03/30/23 06:00 Gabapentin 300 Mg Cap PO 03/30/23 16:00 PREOP DENYS Tranexamic Acid 1,000 mg/ 60 mls @ 360 mls/hr 03/30/23 06:00 Sodium Chloride IVPB 03/30/23 16:00 PREOP DENYS Clindamycin Phosphate/Dextrose 900 mg in 50 mls @ 50 mls/hr 03/30/23 06:00 Cleocin In D5w IVPB 03/30/23 16:00 PREOP DENYS Ringer's Solution 1,000 mls @ 80 mls/hr 03/30/23 06:00 IV 04/28/23 23:59 INFUSION [facility] IV Miscellaneous Supplies 1 each 03/30/23 06:00 Iv Access IV 04/28/23 23:59 DIRECTED DENYS Sodium Chloride 0 ml 03/30/23 06:00 Normal Saline Flush 10 Ml Syr IV 04/28/23 23:59 PRN PRN Sodium Chloride 0 ml 03/30/23 06:00 Normal Saline 10 Ml Vial IJ 04/28/23 23:59 DIRECTED PRN Sterile Water 0 ml 03/30/23 06:00 Water,Injection,Sterile 10 Ml Vial IJ 04/28/23 23:59 DIRECTED PRN PFSH Active Problems Active Problems: Problem Status Onset Code Iliotibial band syndrome of left side M76.32 Patellar tendonitis of both knees M76.51, M76.52 Osteoarthritis of right knee M17.11 Surgical History Surgical History History of removal of ovarian cyst Hx of cholecystectomy Status post arthroscopy of right knee Status post left knee replacement (06/19/20) Status post left rotator cuff repair Status post reconstruction of anterior cruciate ligament (1988) RIGHT Tobacco Smoking/Tobacco Use Status: Never Alcohol Alcohol Intake: never Substance Use Substance use: Never Vital Signs and Lab Results Vital Signs Most Recent Vital Signs in EMR: Most Recent Vital Signs Temp Pulse Resp BP Pulse Ox 36.5 C 61 17 151/82 H 100 03/30/23 06:16 03/30/23 06:16 03/30/23 06:16 03/30/23 06:16 03/30/23 06:16 Lab Results Blood Type / Crossmatch: No Data to Display Complete Blood Count: White Blood Count 5.21 10^3/uL (4.4-10.8) 03/22/23 10:50 Red Blood Count 4.80 10^6/uL (3.93-5.22) 03/22/23 10:50 Hemoglobin 14.6 g/dL (11.2-15.7) 03/22/23 10:50 Hematocrit 42.4 % (36.0-46.0) 03/22/23 10:50 Platelet Count 296 10^3/uL (130-400) 03/22/23 10:50 Complete Metabolic Panel: Sodium 141 mmol/L (136-145) 03/22/23 10:50 Potassium 4.1 mmol/L (3.5-5.1) 03/22/23 10:50 Chloride 103 mmol/L (98-107) 03/22/23 10:50 Carbon Dioxide 30.2 mmol/L (21.0-32.0) 03/22/23 10:50 BUN 18 mg/dL (7-18) 03/22/23 10:50 Creatinine 0.7 mg/dL (0.55-1.02) 03/22/23 10:50 Est GFR (CKD-EPI 2020) 97.12 (mL/min/1.73m2) 03/22/23 10:50 Calcium 10.1 mg/dL (8.5-10.1) 03/22/23 10:50 Glucose 91 mg/dL (74-106) 03/22/23 10:50 Liver Function Panel: No Data to Display Coagulation Panel: No Data to Display Cardiac Panel: No Data to Display Arterial Blood Gas: No Data to Display Venous Blood Gas: No Data to Display Pancreas Panel: No Data to Display Thyroid Panel: No Data to Display Infectious Disease: No Data to Display Blood Cultures: No Data to Display Toxicology Panel: No Data to Display Anesthesia Assessment and Plan Anesthesia History Personal History: No History of Anesthesia Complications Family History: No Family History of Anesthesia Complications Exercise Tolerance Exercise Tolerance: Metabolic Equivalents>4 Pertinent Negatives Pertinent Negatives: No Symptoms of GERD, No Major Cardiovascular Symptoms or Complaints and No Major Pulmonary Symptoms or Complaints Cardiac & Pulmonary Exam Cardiac Exam: Normal S1/S2 Heart Sounds Pulmonary Exam: Clear Bilateral Breath Sounds Implantable Cardiac Device Does patient have a Pacemaker or an ICD?: No Airway Exam Known Difficult Airway: No Mallampati Class: 2 Mouth Opening: Normal (> 3cm) Thyromental Distance: Less than 3 cm Neck Range of Motion: Full ROM Neck Circumference: Normal Teeth Condition: Normal Dentition ASA Classification ASA Score: ASA 1 Emergency Case?: No NPO Status NPO Status: NPO Clears >2 hours, Solids >8 hours Anesthesia Plan Resuscitation Status: Full Code Anesthesia Technique: Spinal Anesthesia Airway Planned: Natural Airway Pain Management: Surgeon and patient request nerve block Monitors Used: Standard Monitors
[2023-03-30] MEDS: Gabapentin 300 MG CAP PO (06:26)
[2023-03-30] MEDS: Acetaminophen 500 MG TAB 1000 MG PO (06:26)
[2023-03-30] MEDS: Lactated Ringers 1,000 ML 80 ML IV (06:42)
[2023-03-30] MEDS: CLINDAMYCIN 900 MG/50 ML BAG 50 MG IVPB (06:50)
--- NOTE | 2023-03-30 07:13 | PDOC.DSDIS_ITS ---
Date of service: 03/30/23 Time of Service: 10:47 Discharge Plan Disposition Patient Disposition: Home Condition: Good Discharge Details Reason For Visit: Right Knee Arthritis Attending Provider: Solis Reyna Primary Care Provider: Ruperto Helton Home Meds and New Rx's Prescriptions: New aspirin 81 mg tablet,delayed release (DR/EC) 81 mg PO BID Qty: 60 0RF acetaminophen 500 mg tablet 1,000 mg PO Q8H PRN (Reason: pain) Qty: 90 3RF pantoprazole 40 mg tablet,delayed release (DR/EC) 40 mg PO DAILY Qty: 30 0RF dexamethasone 4 mg tablet 4 mg PO DAILY Qty: 2 0RF Rx Instructions: Starting Post-Operative Day #1 (Day after surgery) oxycodone 5 mg tablet 5 mg PO Q4H PRNQty: 18 0RF meloxicam 15 mg tablet 15 mg PO DAILY Qty: 30 0RF Continued gabapentin 100 mg capsule 100 mg PO TID multivitamin Tablet 1 tab PO DAILY coenzyme Q10 [CoQ-10] 100 mg Capsule 100 mg PO DAILY vit A, C, [id number] vit 6 5,000-60-30-7.5 hatk-qm-sh-mg Tablet 1 tab PO DAILY Discharge Instructions Additional Instructions: Total Knee Discharge Instructions Activity: The most important activity is to walk and to work on gentle motion (both flexion and extension). You should try to take short walks a few times a day. It is important that when resting you work on keeping the knee straight. Avoid putting a pillow behind the knee as this will encourage flexion. Work on range of motion exercises as provided by Physical Therapy. - Start outpatient physical therapy within 2 weeks. - You should wear the BERNIE hose on both legs for 2 weeks. You may remove these at night. You may also use any compression sock in place of the BERNIE hose. - Utilize [employer] to review exercises, see videos on exercises and obtain basic information pertaining to your surgery and your recovery. Dressing: Remove the Raymundo wrap by 2 days after your surgery and put on the BERNIE stocking given to you from the hospital. Keep the surgical dressing (underneath the RAYMUNDO wrap) in place for at least one week. After the first week it may be removed and replaced with light gauze and tape or nothing. The wound and dressing may get wet after 3 days but avoid soaking the dressing or otherwise it will need to be changed. Many people prefer covering the dressing with cling wrap (saran wrap) to minimize it from getting soaked. If it gets wet, just pat dry. If it starts to peel off then it will need to be changed. Medications: - You should take Tylenol and anti-inflammatory Meloxicam as your primary pain control medications. If the Celebrex is too expensive or not covered, please call the office for another alternative (Advil/Ibuprofen or Naproxen/Aleve) - You have been prescribed a stronger pain medication Oxycodone for breakthrough pain, take as needed as prescribed. - You have also been prescribed a stomach acid reduction agent Pantoprozole to h elp reduce stomach acid and reflux. - You will continue your Gabapentin - You will be taking Aspirin 81mg twice a day for DVT prevention unless instructed otherwise. - You have also been prescribed Decadron to take to control post-operative nausea and pain. You will start this tomorrow. - If you have constipation you should take Colace or Miralax (both [id number]). It takes most people 3-4 days to have a bowel movement. Follow-up: 2 weeks If you have any acute concerns or questions, please do not hesitate to contact the office at [phone]. You may contact Dr. Reyna with any questions after hours through the hospital at [phone] or on his cell phone at [phone]. Stand Alone Forms: Anesthesia Discharge Inst., Anes.Nerve Block Instructions, Kevin Mohan (DSU) Referrals: Solis Reyna MD [ [facility] STAFF PHYSICIAN] - Equipment/Supplies: Walker Activity:: Activity as Tolerated Shower/Bathe:: Cover Diet:: As Tolerated Discharge Orders Discharge Orders: Discharge Order (Routine); Ordered 03/30/23 Ordered By: Solis Reyna DS: Diagnosis Discharge Diagnosis (1) Osteoarthritis of right knee: Status: Chronic
--- NOTE | 2023-03-30 07:28 | W.ANESNERVE ---
Nerve Block Single Injection Procedure Date and Time Date Performed: 03/30/23 Procedure Start: 07:15 Location Where Procedure Performed Procedure Location: Day Surgery Unit Reason Performed: Postoperative Analgesia Requesting Provider: Solis Reyna Timeout Performed Timeout Performed: Yes Monitoring Used ECG, Blood Pressure, SpO2 and See EMR for corresponding vital signs Sterility Sterility: Hand Hygiene, Surgical Cap, Surgical Mask, Sterile Gloves and Chlorhexidine Sedation Given During Procedure Sedation Given (Indicate Dose Given): No Sedation given Patient Mental Status Patient Mental Status: Awake Nerve Block 1st Nerve Block: Laterality: Right Block Type: Adductor Canal Ultrasound Image Saved?: Yes Needle / Catheter Used: 100mm SonoPlex II Local Anesthetic Bolus (Indicate Dose Given): Lidocaine used for local infiltration of skin, Injected in 3-5ml increments after negative blood aspiration and Bupivacaine 0.25% Dose:: 20ml Additives (Indicate Dose Given): None Ultrasound: Sterile probe cover and gel used Nerve Stimulator: Not Used Paresthesia: None Procedure Tolerated: No Complications and Patient tolerated well Procedure Outcome: Successful Performed By: Hao Chilel
--- NOTE | 2023-03-30 09:09 | ROE_ITS ---
Date of service: 03/30/23 Time of Service: 09:09 Operative Note Operative Note DATE OF PROCEDURE: 03/30/23 PRE-OP DIAGNOSIS: Right Knee Osteoarthritis POST-OP DIAGNOSIS: same PROCEDURE: Right Total Knee Replacement with Intraoperative Navigation SURGEON: Solis Reyna HARDWOOD SAWYER: Kelsi Singleton ANESTHESIA TYPE: Spinal Refer to Anesthesia Record ESTIMATED BLOOD LOSS: 100 PATHOLOGY: none sent TOURNIQUET TIME: 0 COMPLICATIONS: None Patient was transported to: PACU Patient's condition: stable Implants: 1. Depuy Attune Cementless Cruciate Retaining Femoral Component, Size 6 2. Depuy Attune Cementless Fixed Bearing Tibial Component, Size 5 3. Depuy Attune 6x6 CR/FB Poly 4. Depuy Attune Patellar Component, Size 32 Indications: I have seen Jessica in clinic for symptoms of RIGHT knee arthritis, confirmed with radiographic findings. Jessica has exhausted nonoperative methods and was having significant limitations in daily function and desired better function and less pain. I discussed the technical details of a knee replacement. I explained the risks of the procedure to include, but not limited to, bleeding, infection, pain, stiffness, fracture, damage to nerves and vessels, damage to muscles and tendons, loosening, need for repeat procedure, blood clot and cardiopulmonary demise. Despite these risks, Jessica elected to proceed. Findings: There was significant signs of arthritis throughout the knee. Large osteophytes present throughout. A single screw was removed from the proximal-medial tibia. Procedure Description: Jessica was greeted in the preoperative holding area where the correct side was identified and marked. The consent was reviewed with the patient and signed. The history and physical was updated. All questions were answered. Preoperative mediacations were administered: Acetaminophen 1000mg and Gabapentin 300mg. An adductor canal block was then administered by the anesthesia team in the PACU. Jessica was taken back to the operating room. A spinal anesthestic was then administered. The patient was placed into the supine position on the operating room table. A nonsterile tourniquet was placed high onto the leg. Posts were placed for positioning during the procedure. All bony prominences were well padded. Prophylactic antibiotics in the form of Clindamycin were administered. 1g of Tranxemic Acid was given intravenously within 30 minutes of incision. The right leg was then prepped with Chloraprep and draped in a standard fashion with impervious stockinette. A second prep with Chloraprep was performed prior to application of Iodine impregnated skin protection. A timeout to confirm correct identity, side and site, procedure, allergies, anesthesia, and medical concerns was performed. With the knee in some flexion, a midline incision was made overlying the knee. Full thickness skin flaps were raised once the extensor mechanism was encountered. These were raised medially and laterally. Any bleeding was controlled with electrocautery. Once the extensor mechanism was fully exposed, a medial parapatellar arthrotomy was performed in a flexed position. All bleeding from the arthrotomy and the geniculate arteries was coagulated. A medial subperiosteal peel was performed with electrocautery to the midcoronal plane. Due to the significant varus deformity the entire medial tibial plateau was exposed. The fat pad was removed while keeping the patellar tendon protected. The anterior distal femur synovium was removed for later visualization. The ACL and PCL were resected and the anterior horn of the lateral meniscus was transected. The knee was then flexed with the patella everted. Large osteophytes from the tibia were removed. Large osteophytes from the femur were removed. A single starting pin was then placed 1cm anterior to the PCL insertion and the notch in the direction of the femoral head. The OrthoAlign device was applied over the pin. It was oriented to be in line with the epicondylar axis and the trochlear groove. It was then pinned into place. The navigation computer was then turned on and calibrated. The distal femur cut was set at 1 degrees varus and 3.5 degrees flexion. The distal femur cutting guide then was positioned for a 9mm cut. The distal femur was cut with an oscillating saw while protecting the soft tissues. The tibia was then addressed. The OrthoAlign device was placed over the tibial tubercle and medial tibia and secured into position. Once again, OrthoAlign was calibrated and then set for a 1 degree varus cut and 5.5 degrees of posterior slope. With this locked into position, the cut thickness stylus was used to assess cut thickness. The medial side, most involved side, was set for a 4mm cut. This was then held in position and pinned into place with 2 additional pins and a cross pin for stability. The medial and lateral collateral ligaments were protected and the cut was performed. The cut was not able to be completed due to the screw from previous ACL surgery. Thus, the OrthoAlign device was removed and the screw head was exposed and removed without diffculty. Then, the cut was completed. It was assessed and noted to be of appropriate dimensions. The guide and OrthoAlign was removed. A spacer block was inserted and the knee was brought into extension to ensure enough space was present. . The Orthoalign gap balancing device was then placed in extension. This was used to ensure that the ligaments were properly balanced with up to 2 to 3 mm laxity laterally compared medially. The extension gap was measured as 19mm. The knee was then brought into 90 degrees of flexion and the ligament trust operations assistant was once again placed. Under the same amount of force the flexion gap was measured. The Attune specific jig was placed and the flexion gap was made to match the extension gap. The femur was then sized as a size 6. The 4-in-1 cutting guide was the placed. An vero wing was used to confirm appropriate position of the anterior cut to avoid notching. This cutting guide was ensured to be flush on the cut surface and then pinned into place with headed pins. While protecting the soft tissues, quad tendon, and collateral ligaments, the anterior and posterior cuts were performed with a saw. The central two pins were removed and the posterior and anterior chamfers were cut next. The notch-cutting guide was placed. This was pinned to lateralize the femoral component as much as possible while keeping it flush on the cut surface. This was then pinned into position. A saw was used to make the notch cut. A rasp smoothed the cut surfaces. The medial and lateral menisci were removed. A trial femoral component was then inserted, impacted down to the cut surfaces, and the lug holes were drilled. A provisional trial tibial component was placed and the knee was brought through range of motion. There was noted to be excellent extension and flexion. There was no significant instability. The patella was tracking without thumbs. A size 6mm polyethylene component provided the best range of motion and stability with less than 2mm gapping with medial and lateral stress and full extension without significant hyperextension. The tibial cut surface was fully exposed. The tibia was then sized as a 5. The tibia had been previously marked during trialing to correspond to the center of the tibial component to help with rotation. The trial was aligned to this concha, approximately rotated to the medial 1/3rd of the tibial tubercle. The trial was pinned into place. The tibia was prepared with a reamer and a keel punch and lug holes. The knee was then brought into extension and the patella was measured as 22mm. Using the patellar clamp and cut guide, this was resected to a flat surface with at least 13mm of thickness remaining. The size 32 patella fit the best. This was oriented and then clamped into position. The lugs were drilled. The trial components were removed. The final components were opened on the back table. The periosteal and capsular tissues, especially posteriorly, around the knee were then systematically injected with a periarticular cocktail consisting of 246mg of Ropivacaine, 0.5mg of Epinephrine, 0.08mg of Clonidine, and 30mg of Ketorolac, diluted to 100cc. On the back table, with the implants opened, the cement was mixed. One batch of high viscosity cement was prepared with vacuum assistance. After the cement was ready a small amount was placed on the cut surface of the patella and the patellar button was clamped into position and held. While the cement was hardening, the cementless knee components were placed. Starting with the tibial component, the tibia was subluxed anteriorly and the lug holes of the component were lined up. The tibia was then impacted with an impactor and mallet until the tibial component was in contact with the tibia. Then, the femoral component was inserted. The lug holes were aligned and the component was impacted into position. The final polyethylene component was inserted. The knee was irrigated with Surgiphor Betadine solution. This was allowed to sit in the knee for 3 minutes and then it was thoroughly irrigated out with saline. After the cement had finally cured, approximately 15min, the clamp was removed from the patella and the knee was taken through range of motion. The patella was tracking with a no-thumbs technique. The capsule was then reapproximated with a No. 1 Vicryl at multiple locations. The capsule was finally closed with a No. 2 Stratafix, barbed suture. Deep tissues were then reapproximated with 0 Vicryl and 2-0 Vicryl. The skin was closed with a running 3-0 Monocryl in a subcuticular fashion. This was reinforced with skin glue. A Mepilex silver dressing was applied along with a [id number] PIA wrap. A CryoCuff was applied. Jessica was transferred to the hospital bed without difficulty an suffering no apparent complication. Jessica has a good prognosis. Physical therapy will start today and without restrictions, weight-bearing as tolerated. Aspirin 81mg BID will be used for DVT prophylaxis.
[2023-03-30] MEDS: HYDROmorphone 2 MG/ML SYR IVP ×2 (09:48→09:58)
[2023-03-30] MEDS: Normal Saline 10 ML VIAL IJ (09:48)
--- NOTE | 2023-03-30 11:11 | W.ANESPOSTOP ---
Postoperative Evaluation Date, Time and Location Date Performed: 03/30/23 Time Performed: 10:25 Patient Location: Day Surgery Unit Vital Signs Most Recent Imported Vital Signs: Most Recent Vital Signs Temp Pulse Resp BP Pulse Ox 36.5 C 65 18 132/65 95 03/30/23 10:54 03/30/23 10:54 03/30/23 10:54 03/30/23 10:54 03/30/23 10:54 Pain Score Most Recent Pain Score: Most Recent Pain Score Pain Level 2 03/30/23 10:54 Assessment Mental Status: Awake (Alert & Oriented to Patient Baseline) Airway and Respiratory Function: Patent airway with normal (patient baseline) respiratory exam Cardiovascular Function: Hemodynamically Stable Hydration Status: Adequately Hydrated Nausea & Vomiting: No Nausea or Vomiting Pain: Pain is tolerable per patient Peripheral Nerve Block: Regional nerve block not resolved at time of post operative discharge
--- NOTE | 2023-03-30 11:48 | IN_ITS ---
PT Notes Visit Reasons: Right Knee Arthritis Physical Therapy Day Surgery Initial Evaluation Date: 03/30/2023 Referring Doctor:? Solis Reyna MD PT Orders: PT CONSULT: S/P ortho Surgery Precautions: Fall. Standard.? WBAT on R LE. Patient Profile/Admitting Diagnosis: Jessica is a 62-year-old female with degenerative joint disease of the right knee and is status post R otal knee arthroplasty on postoperative day 0. PMHX: Surgical History?(Updated 03/22/23 @ 10:07 by Kelsi Singleton) History of removal of ovarian cyst Hx of cholecystectomy Status post arthroscopy of right knee Status post left knee replacement (06/19/20) Status post left rotator cuff repair Status post reconstruction of anterior cruciate ligament (1988) RIGHT Social History/Home Situation: Lives alone in a private home with three steps to enter and a rail on one side.? Daughter is a physical therapist practicing in [place]. 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 Friend has been a good support. Equipment Owned/DME: [employer] Subjective: Mild buckling in the R knee but no LOB. Pain at 1-2/10 in the R knee. Objective: General Observation: PIA wraps on right LE.? Cryocuff on right knee. IV acces in L UE. Mental Status: Alert and oriented x4 Pain: 1-2/10 in the right knee ROM: Right Lower Extremity: Hip flexion WFL. Hip abduction WFL. Knee flexion 10 degrees to 100 degrees. Knee extension -10 degrees. Ankle dorsiflexion WFL. Ankle plantarflexion WFL. Left Lower Extremity: Hip flexion WFL. Hip abduction WFL. Knee flexion WFL.? Knee extension -WFL.? Ankle dorsiflexion WFL. Ankle plantarflexion WFL. Strength: Right Lower Extremity: Hip flexors 5/5. Hip abductors 5/5. Knee flexors 3-/5. Knee extensors 3-/5. Ankle dorsiflexors 5/5. Ankle plantarflexors 5/5. Left Lower Extremity:Hip flexors 5/5. Hip abductors 5/5. Knee flexors 5/5. Knee extensors 5/5. Ankle dorsiflexors 5/5. Ankle plantarflexors 5/5. Sensation: Intact as to pain and pressure on bilateral lower extremities. Reports some increased tingling in B legs and toes. Bed Mobility/Transfers: Rolling supervison Supine to sit supervison with HOB at 30 degrees Sit to stand SBA Stand to sit SBA Bed to toilet seat SBA, moderate cueing to decrease step length on the R on heels trike to allow for better control or R quads and reduce buckling Toilet seat to bed SBA, moderate cueing to decrease step length on the R on heels trike to allow for better control or R quads and reduce buckling Gait: Guided patient through level surface ambulation of 100 feet using front-wheeled walker with WBAT on the R LE requiring contact guard assist and minimal verbal cueing for minimizing step length to allow for better mechanical advantage for the R quad to lessen tendency to buckle as well as for AD management.? Mild buckling x 5 but no LOB. Stairs: Ascended and descended 6 x 4-inch steps and 4 x 6-inch steps holding onto bilateral rails with step to gait pattern requiring only standby assist with no buckling on the right knee noted. Minimal verbal cueing provided to increase flexion of the right knee for each ascent. Balance: Static Sitting: Normal Dynamic Sitting: Normal Static Standing: Fair Dynamic Standing: Fair Special Tests: Mobility Limitations Standardized Measure [facility] 6 clicks Basic Mobility Inpatient Short Form: Raw Score: 23? CMS Score: 11% deficit? ? ? THERA EX: Trained patient with correct performance of exercises below to maximize motor co ntrol, joint flexibility, soft tissue extensibility of the R knee musculature: Access Code: [email or web address] URL: [email or web address] Date: 03/30/2023 Prepared by: Yasmine Webb Exercises - Supine Quad Set - 1 x daily - 7 x weekly - 1 sets - 10 reps - 5 hold - Supine Heel Slide - 1 x daily - 7 x weekly - 1 sets - 10 reps - 5 hold - Supine Ankle Pumps - 1 x daily - 7 x weekly - 1 sets - 10 reps - 5 hold - Small Range Straight Leg Raise - 1 x daily - 7 x weekly - 1 sets - 10 reps - 5 hold - Seated March - 1 x daily - 7 x weekly - 1 sets - 10 reps - 5 hold Informed Consent/Education:? Patient was instructed in purpose of PT consult and plan of care. Agreeable to proceed with established PT POC to achieve personal goals. ASSESSMENT: Jessica demonstrates functional mobility decline requiring the use of front wheeled walker for all mobility ADL performance.? She will have adequate support at home.? She will benefit from outpatient PT services to facilitate achievement of highest functional level and of full return to vocational activities. Patient presents with clinical signs and symptoms consistent with current/admitting diagnoses that have resulted to mobility limitations, gait instability, generalized weakness, and impairment of motor control as demonstrated by the following impairment level findings: 1.? Decreased strength to R knee major muscle groups 2.? Impaired standing balance 3.? Impaired activity tolerance 4.? Limitation of joint range of motion in R knee Impairments are contributing to the following functional limitations: 1.? Inability to safely ambulate without assistive device 2.? Increase completion time for mobility ADL performance 3.? Increased fall risk 4.? Inability to negotiate steps alone safely Patient is assessed as a 19413 moderate complexity based on the following: History: Asked to 1-year-old female with impairment level findings, functional limitations, and past medical history as indicated above Examination: Demonstrable impairment in strength, balance, and mobility level with underlying impairments and functional limitations as documented above Presentation:Evolving Decision Makin moderate complexity Goals: N/A. PT evaluation and 1 treatment session for functional mobility training and HEP instruction. Plan of Care/Treatment Plan: N/A. PT evaluation and 1 treatment session for functional mobility training and HEP instruction. DISCHARGE RECOMMENDATIONS: Home when medically cleared by orthopedic surgeon.? Outpatient PT services in 2 weeks to facilitate achievement of highest functional mobility level and facilitate return to vocational activities. TREATMENT CODE/TIME: 50817 x 28 minutes for 1 unit beginning at 11:12 PM. Thank you for the opportunity to participate in the care of this patient. Yasmine Webb PT, DPT, CLT [facility] [place], [place]
== END 2023-03-30 12:23 | disposition home or self-care (01) ==
PROVIDERS: PCP Nurse Practitioner Family; Visit Provider Student in an Organized Health Care Education/Training Program
PROC: (CPT 27447; principal; 2023-03-30 07:30)
DX: M17.11 Unilateral primary osteoarthritis, right knee (principal)
CPT/HCPCS: 27447; 20985; 76942; 97162; J1100; J1170; J2250; J2405

== ENCOUNTER 2023-04-12 10:58 | Outpatient (CLI) | payer SELFPAY ==
--- NOTE | 2023-04-12 10:30 | DI.RAD_ITS ---
Exam(s) XR KNEE RT 1V XR STANDING ALIGNMENT EXAM: XR STANDING ALIGNMENT CLINICAL HISTORY: 1ST POST OP S/P R TKA. TECHNIQUE: 2D digital imaging was performed. Standing AP views were performed from the pelvis throu gh the ankles. Right COMPARISON: CR XR STANDING ALIGNMENT from 03/22/2023 CR XR KNEE RT 1V from 03/22/2023 CR XR KNEE RT 1V from 04/12/2023 FINDINGS: BONES: No acute fracture is present. No bony destructive lesion is seen. Leg length discrepancy: Mild with right femoral head projecting a few millimeters superior to the l eft. JOINTS: Knees: Right total knee prosthesis has been placed since the prior exam. The left knee prost hesis is unchanged. Alignment satisfactory. No abnormal surrounding lucencies. The ankle joints are unremarkable. The hip joints are unremarkable. SOFT TISSUE: Mild edema right lower leg. IMPRESSION: Bilateral knee prostheses. Mild overall leg length discrepancy. DATA REPOSITORY: RADIATION DOSE DELIVERED:
== END 2023-04-12 10:59 | disposition home or self-care (01) ==
LOC: DIORS 10:58
PROVIDERS: PCP Nurse Practitioner Family; Visit Provider Student in an Organized Health Care Education/Training Program
DX: Z96.651 Presence of right artificial knee joint (principal); Z96.652 Presence of left artificial knee joint; Z47.1 Aftercare following joint replacement surgery
CPT/HCPCS: 73560; 77073